=== PATIENT | male | born 1955 | race Caucasian/White ===

== ENCOUNTER 2016-09-18 22:57 | Inpatient (IN) | payer OTHER ==
[~2016-09-18] VITALS: Ht 172.7 cm; Wt 50.0 kg
[~2016-09-18 22:57] MED LIST: CEROVITE ADVANC1 TAB PO; CLINDAMYCIN HC300 MG PO; Carafate1 GM/10 ML PO; DILANTIN KAPSE100 MG PO; DILANTIN100 MG PO; Ferrex 150150 MG PO; K-POTASSIUM CH20 ME1 PO; PROTONIX40 M1 PO; PROTONIX40 MG PO; RESTORIL30 MG PO; SYMBICORT1 AE1 INH; VICODIN 5/500 505 MG PO; [UNRECOGNIZED DRUG - OTHER]
[2016-09-18 22:59] VITALS: BP 127/82
[2016-09-18 23:18] LABS: BASO # 0.1 10*3/uL (0.0-0.1); BASO % 0.6 % (0.0-1.0); EOS # 0.1 10*3/uL (0.0-0.4); EOS % 1.4 % (1.0-4.0); HEMOGLOBIN 13.8 g/dl (14.0-18.0); LYMPH % 21.9 % (27.0-41.0); MEAN CORPUSCULAR HGB 31.7 pg (27.0-31.0); MEAN CORPUSCULAR HGB CONC 34.5 g/dl (33.0-37.0); MEAN PLATELET VOLUME 8.8 fl (9.6-12.3); MONO # 1.4 10*3/uL (0.1-1.0); MONO % 15.8 % (3.0-9.0); NEUT # 5.4 10*3/uL (2.3-7.9); NEUT % 60.1 % (47.0-73.0); PLATELET COUNT AUTOMATED 330 10*3/uL (130-400); RED BLOOD COUNT 4.35 10*6/uL (4.50-5.90); RED CELL DISTRI WIDTH 13.3 % (0-14.5)
[2016-09-18 23:20] LABS: OXYHEMOGLOBIN 67.9 % (85.0-98.0); TOTAL HGB 14.3 G/DL (13.5-18.0)
[2016-09-18 23:34] LABS: ALBUMIN 3.8 gm/dl (3.1-4.5); ALKALINE PHOSPHATASE 83 U/L (45-117); BILIRUBIN, TOTAL 0.7 mg/dl (0.2-1.0); BUN 22 mg/dl (7-24); CARBON DIOXIDE 25 mmol/L (21-32); CHLORIDE 95 mmol/L (98-107); EST GLOM FILT AFRICAN AMERICAN > 60 ml/min; GLUCOSE 81 mg/dL (65-99); SGOT/AST 42 IU/L (3-35); SGPT/ALT 17 U/L (12-78); SODIUM 131 mmol/L (136-145); TOTAL PROTEIN 7.5 gm/dL (6.4-8.2)
[2016-09-19] VITALS (8 sets, daily range): BP systolic 134–172; BP diastolic 76–98
[2016-09-19 09:55] LABS: BILIRUBIN NEGATIVE (NEGATIVE); BLOOD NEGATIVE (NEGATIVE); CLARITY CLEAR (CLEAR); COLOR YELLOW (YELLOW); GLUCOSE NEGATIVE (NEGATIVE); KETONE NEGATIVE (NEGATIVE); LEUKO ESTERASE NEGATIVE (NEGATIVE); NITRITE NEGATIVE (NEGATIVE); PH 5.5 (5.0-9.0); PROTEIN NEGATIVE (NEGATIVE); SPECIFIC GRAVITY <= 1.005 (1.005-1.030); UROBILINOGEN 0.2 E.U./dl (0.2-1.0)
[2016-09-19 10:01] LABS: BACTERIA TRACE; URINE REFLEX COMMENT NO (NO)
[2016-09-19 10:04] LABS: URINE AMPHETAMINES < 1000 (1000ng/ml); URINE BARBITURATES < 200 (200ng/ml); URINE COCAINE < 300 (300ng/ml)
[2016-09-19 15:51] LABS: ABG BASE EXCESS -2.7 mmol/L (-2.0-2.0); ABG CO2 CONTENT 22.8 mmol/L (23-27); ABG HCO3 21.6 mmol/l (22-26); ABG TEMPERATURE 96.8 F (98.0-99.0); ARTERIAL BLOOD GAS PH 7.387 (7.35-7.45); ARTERIAL BLOOD GAS PO2 84.3 mmHg (80-90)
[2016-09-20] VITALS (7 sets, daily range): BP systolic 118–186; BP diastolic 56–100
[2016-09-20 06:22] LABS: BASO # 0.1 10*3/uL (0.0-0.1); EOS # 0.3 10*3/uL (0.0-0.4); HEMATOCRIT 38.5 % (42.0-52.0); HEMOGLOBIN 13.4 g/dl (14.0-18.0); LYMPH # 1.7 10*3/uL (1.3-4.4); LYMPH % 24.3 % (27.0-41.0); MEAN CELL VOLUME 92.3 fl (80.0-94.0); MEAN CORPUSCULAR HGB 32.1 pg (27.0-31.0); MEAN CORPUSCULAR HGB CONC 34.8 g/dl (33.0-37.0); MEAN PLATELET VOLUME 8.6 fl (9.6-12.3); MONO % 14.6 % (3.0-9.0); NEUT # 3.8 10*3/uL (2.3-7.9); NEUT % 55.8 % (47.0-73.0); PLATELET COUNT AUTOMATED 336 10*3/uL (130-400); RED BLOOD COUNT 4.17 10*6/uL (4.50-5.90); RED CELL DISTRI WIDTH 13.4 % (0-14.5); WHITE BLOOD COUNT 6.8 10*3/uL (4.8-10.8)
[2016-09-20 06:40] LABS: ALBUMIN 3.4 gm/dl (3.1-4.5); ALKALINE PHOSPHATASE 78 U/L (45-117); BILIRUBIN, TOTAL 0.5 mg/dl (0.2-1.0); CARBON DIOXIDE 25 mmol/L (21-32); CHLORIDE 103 mmol/L (98-107); CHOLESTEROL 184 mg/dL (<200); EST GLOM FILT AFRICAN AMERICAN > 60 ml/min; FREE T4 0.97 ng/dl (0.76-1.46); GLUCOSE 80 mg/dL (65-99); HDL CHOLESTEROL 69 mg/dl (40-60); LDL CHOLESTEROL 100 mg/dL (9-159); MAGNESIUM 1.8 mg/dL (1.5-2.1); POTASSIUM 3.4 mmol/L (3.5-5.1); SGOT/AST 31 IU/L (3-35); SGPT/ALT 17 U/L (12-78); SODIUM 137 mmol/L (136-145); TOTAL PROTEIN 6.9 gm/dL (6.4-8.2); TRIGLYCERIDES 77 mg/dl (<150); VLDL CHOLESTEROL 15 mg/dL (6-40)
[2016-09-20 06:41] LABS: PROTHROMBIN TIME 10.7 SECONDS (9.0-12.4)
[2016-09-20 06:51] LABS: BUN 10 mg/dl (7-24)
[2016-09-20 07:25] LABS: HEMOGLOBIN A1c 5.2 % (4.8-5.6)
[2016-09-20 07:48] LABS: FOLIC ACID > 24.00 ng/mL (>5.38)
[2016-09-20 15:43] LABS: ABG BASE EXCESS -2.2 mmol/L (-2.0-2.0); ABG CO2 CONTENT 24.2 mmol/L (23-27); ABG HCO3 22.9 mmol/l (22-26); ABG TEMPERATURE 97.6 F (98.0-99.0); ARTERIAL BLOOD GAS PH 7.356 (7.35-7.45); ARTERIAL BLOOD GAS PO2 87.4 mmHg (80-90)
[2016-09-21] VITALS: BP 164/78
[2016-09-21 04:00] VITALS: BP 161/84
[2016-09-21 05:57] LABS: BUN 12 mg/dl (7-24); CARBON DIOXIDE 25 mmol/L (21-32); CHLORIDE 106 mmol/L (98-107); EST GLOM FILT AFRICAN AMERICAN > 60 ml/min; GLUCOSE 91 mg/dL (65-99); POTASSIUM 3.9 mmol/L (3.5-5.1); SODIUM 138 mmol/L (136-145)
[2016-09-21 08:00] VITALS: BP 134/76
[2016-09-21] MEDS ORDERED: CHLORDIAZEPOXID25 M1 PO (09:37)
[2016-09-21] MEDS ORDERED: PHENYTOIN IV (09:37)
[2016-09-21] MEDS ORDERED: VITAMIN D50000 I3 PO (09:37)
[2016-09-21 12:00] VITALS: BP 140/74
== END 2016-09-21 14:00 | disposition short-term general hospital (02) | DRG 896 ==
LOC: ED 22:57 → ICCU 09-19 01:57
PROVIDERS: Emergency Medicine Emergency Medical Services; Internal Medicine; Internal Medicine Hospice and Palliative Medicine
DX: F10.239 Alcohol dependence with withdrawal, unspecified (principal); N17.0 Acute kidney failure with tubular necrosis; G93.40 Encephalopathy, unspecified; E44.0 Moderate protein-calorie malnutrition; E87.1 Hypo-osmolality and hyponatremia; E87.8 Other disorders of electrolyte and fluid balance, not elsewhere classified; E67.8 Other specified hyperalimentation; G40.909 Epilepsy, unspecified, not intractable, without status epilepticus; F17.200 Nicotine dependence, unspecified, uncomplicated; D72.810 Lymphocytopenia; E55.9 Vitamin D deficiency, unspecified; I73.9 Peripheral vascular disease, unspecified; Z79.899 Other long term (current) drug therapy; Z68.21 Body mass index [BMI] 21.0-21.9, adult